=== PATIENT | male | born 1980 | race American Indian/Alaskan Native ===

== ENCOUNTER 2018-09-08 15:12 | Emergency (ER) | payer MEDICARE, MEDICAID ==
[~2018-09-08] VITALS: Ht 175.3 cm; Wt 66.2 kg
[2018-09-08 16:13] LABS: Basophils # (auto) 0 uL; Basophils % (auto) 0.2 % (0.0-2.0); Eosinophils # (auto) 0 uL; Eosinophils % (auto) 0.4 % (0.0-7.0); Hematocrit 43.4 % (41.0-53.0); Hemoglobin 14.7 g/dL (13.5-17.5); Lymphocytes # (auto) 0.9 uL; Lymphocytes % (auto) 7.2 % (10.0-50.0); Mean Corpuscular Hgb Conc. 33.9 g/dL (32.0-36.0); Mean Corpuscular Volume 88.5 fL (80.0-100.0); Monocytes # (auto) 0.7 uL; Monocytes % (auto) 5.4 % (0.0-12.0); Neutrophils # (auto) 11.1 uL; Neutrophils % (auto) 86.8 % (37.0-80.0); Platelet Count (auto) 211 10^3/uL (140-450); Red Blood Cells 4.91 10^6/uL (4.5-5.90); Red Cell Distribution Width 13.4 % (11.8-14.3); White Blood Cell 12.8 10^3/uL (4.4-10.8)
[2018-09-08 16:29] LABS: Albumin 4.3 g/dL (3.4-5.0); Calcium 8.7 mg/dL (8.5-10.1); Potassium 3.2 mmol/L (3.5-5.1)
[2018-09-08 16:32] LABS: BUN/Creatinine Ratio 14.1; Bilirubin, Total 1.2 mg/dL (0.2-1.0); Total Protein 8.1 g/dL (6.4-8.2)
[2018-09-08] MEDS ORDERED: SODIUM CHLORIDE 0.9% 1,000 ML IVB ONE (19:48)
[2018-09-08 20:59] LABS: Urine Bacteria NONE SEEN /hpf (None Seen); Urine Blood 3+ /uL (Negative); Urine Mucus FEW (None Seen); Urine WBC 1 /hpf (0 - 3)
[2018-09-08] MEDS ORDERED: POTASSIUM CHL 20 Meq TABLET PO ONE (21:15)
[2018-09-08] MEDS ORDERED: cefTRIAXone 1GM/50ML D5W 50 ML IV ONE (21:15)
[2018-09-08 21:38] VITALS: BP 127/70
== END 2018-09-08 23:05 | disposition home or self-care (01) ==
LOC: ER 15:12 → EDBD 15:12 → ER 23:05
DX: N20.2 Calculus of kidney with calculus of ureter (principal); N39.0 Urinary tract infection, site not specified; E87.6 Hypokalemia
CPT/HCPCS: 36415; 71045; 74176; 80053; 81001; 82150; 83690; 83735; 85025; 94761; 96365; 99284; J0696; J7030

== ENCOUNTER 2022-06-19 04:49 | Emergency (ER) | payer MEDICARE, MEDICAID ==
[~2022-06-19] VITALS: Ht 175.3 cm; Wt 68.0 kg
[2022-06-19 05:05] VITALS: BP 134/82
[2022-06-19] MEDS ORDERED: HYDR-3682 PO (05:59)
[2022-06-19] MEDS ORDERED: hydrOXYzine 25 MG TAB or CAP PO ONE (06:00)
== END 2022-06-19 06:31 | disposition home or self-care (01) ==
LOC: ER 04:49 → EDUNIT# 04:49 → EDBD 04:49 → ER 06:21
DX: F41.9 Anxiety disorder, unspecified (principal); R42 Dizziness and giddiness

== ENCOUNTER 2025-03-25 11:23 | Emergency (ER) | payer MEDICARE, MEDICAID ==
[~2025-03-25] VITALS: Ht 175.3 cm; Wt 66.0 kg
[~2025-03-25 11:23] MED LIST: HYDR-3682 PO
[2025-03-25 14:31] LABS: Hematocrit 45.4 % (41.0-53.0); Hemoglobin 15.9 g/dL (13.5-17.5); Mean Corpuscular Hemoglobin 30.4 pg (28.0-32.0); Mean Corpuscular Volume 86.7 fL (80.0-100.0); Nucleated Red Blood Cells % 0.1 %
[2025-03-25 14:52] LABS: Alanine Aminotransferase 28 U/L (7-40); Albumin 3.9 g/dL (3.2-4.8); Alkaline Phosphatase 66 U/L (46-116); Anion Gap 7 (5-15); BUN/Creatinine Ratio 16.1 (10.0-20.0); Blood Urea Nitrogen 14 mg/dL (9-23); Carbon Dioxide 27 mmol/L (20-31); Chloride 105 mmol/L (98-107); Magnesium 2.3 mg/dL (1.6-2.6); Potassium 4.0 mmol/L (3.5-5.1); Sodium 139 mmol/L (136-145); Total Protein 5.8 g/dL (5.7-8.2)
[2025-03-25 14:57] LABS: Bilirubin, Total 1.6 mg/dL (0.2-1.0); Calcium 8.4 mg/dL (8.7-10.4); Glucose 138 mg/dL (74-106)
--- NOTE | 2025-03-25 15:01 | DVH ---
CHEST RADIOGRAPH Indication: syncope Technique: Single frontal view of the chest was obtained COMPARISON: None FINDINGS: Lines and Tubes: None Lungs: Clear Pleura: No effusion. No pneumothorax. Cardiomediastinal contours: Unremarkable Bones: Unremarkable IMPRESSION: No acute disease.
--- NOTE | 2025-03-25 15:07 | ED.PDOC ---
Altered Mental Status HPI Comments HPI: Eloy 44 y.o male presents to the ED via EMS for an evaluation of a syncopal episode while donating plasma today. Patient reports donating plasma every 4 days for financial purposes and states this is the first time he had passed out. Patient mentions poor quality of sleep and did not eat prior to donating today. He mentions "seeing spots" still but denies any nausea, vomiting, chest pain, SOB, fever, chills. Initial Vitals BP: 113/77 HR: 65 RR: 16 O2: 98% RA Temp: 98.6 F Past Medical History: Denies Past Surgical History: Denies Social History: Denies ETOH, smoking, and drug use. Medications: Denies Allergies: Denies HPI: Poor Historian. REVIEW OF SYSTEMS: CONSTITUTIONAL: Denies acute: fever, diaphoresis, chills, generalized weakness. HEAD: Denies acute: headache, photophobia Eyes: Denies acute: Double vision, vision loss, eye pain, eye discharge. EARS: Denies acute: tinnitus, hearing loss, ear discharge, ear pain, THROAT: Denies acute: sore throat, swelling, difficulty swallowing , pain with swallowing, change in voice. NECK: Denies acute: neck pain, neck swelling, stiff neck. HEART: Denies acute : chest pain, palpitations, LUNGS: Denies acute: SOB, wheezing, cough, hemoptysis ABDOMEN: Denies acute: abdominal pain, Nausea, Vomiting, diarrhea, melena , hematemesis, hematochezia SKIN: Denies acute: rash, redness, lesions, itchiness. EXTREMITIES: Denies acute: calf pain, numbness, tingling, weakness, denies pain in extremity. Denies acute: Low back pain. Neuro: Denies acute: focal neurological deficit, motor or sensory focal neurological deficit, tremors, seizure like activity, confusion, dizziness, change in mental status, loss of bowel or bladder function, cauda equina like symptoms. : Denies acute: dysuria, hematuria, flank pain, increase in urinary frequency. PSYCH: Denies acute: hallucination, suicidal ideation, homicidal ideation. PHYSICAL EXAM: General: ----no----acute distress, awake and alert. Head: normocephalic, atraumatic. Neck: supple, trachea is midline, no swelling. Throat: Normal phonation. Eyes:, no erythema, no purulent discharge, no proptosis, no icterus. Heart: regular rate, regular rhythm, no significant murmur appreciated. Lungs: no apparent respiratory distress, Able to speak in full sentences. No wheezing, no rhonchi, no crackles. No stridors Clear to auscultation bilaterally. Abdomen: non tender to palpation, non distended, soft, no guarding, no rebound, + bowel sounds. Neuro: Awake, Alert, oriented to name, self, situation, follows commands GCS=15. Speech is normal. Skin: no petechia, no purpura, no cyanosis, non-pale, not jaundice. Lower extremities: --no - Pitting edema no deformity, no focal swelling, no calf TTP. Makes eye contact. moves all four extremities. Face: no apparent facial droop. ED COURSE: DISCLAIMER: This medical document was created using an electronic medical record system with voice recognition software and computerized dictation system. Although this document has been carefully reviewed, there might still be some phonetic and typographical errors. Occasional wrong-word or "sound-alike" substitutions may have occurred due to the inherent limitations of voice recognition software. These areas are purely typographical due to imperfections of the software programs and do not reflect any compromise in the patient's medical care. Please read the chart carefully and recognize, using context, where these substitutions have occurred. Chief Complaint: Syncope Time Seen by MD: 14:51 Primary Care Provider: UNK Reviewed Notes: Allergies Allergies: Coded Allergies: NO KNOWN ALLERGIES (Unverified , 09/08/18) Home Meds Active Scripts Hydroxyzine Hcl (Hydroxyzine Hcl) 25 Mg Tab, 1 TAB PO PRN PRN, #30 TAB 0 Refills Prov:PATSY MARCELINO 06/19/22 Information Source: Patient Mode of Arrival: EMS Past Medical History PAST MEDICAL HISTORY: Depression Surgical History: Denies all surgeries Family History Family History: Reviewed,noncontributory to illness Social History Smoker: Non-Smoker Alcohol: Denies ETOH Use Drugs: Denies Drug Use Lives In: Other Was a procedure done? Was a procedure done?: No Differential Diagnosis (ALOC) Differential Diagnosis: Dehydration, Hypoglycemia, Other (electrolyte imbalance ) X-Ray, Labs, Meds, VS Vital Signs Date Time Temp Pulse Resp B/P (MAP) Pulse Ox O2 Delivery O2 Flow Rate FiO2 03/25/25 11:42 98.6 65 16 113/77 98 98.6 Lab Test 03/25/25 15:04 03/25/25 14:14 Range/Units Troponin I High Sensitivity 9 8 </=54 ng/L White Blood Count 7.5 4.4-10.8 10^3/uL Red Blood Count 5.24 4.5-5.90 10^6/uL Hemoglobin 15.9 13.5-17.5 g/dL Hematocrit 45.4 41.0-53.0 % Mean Corpuscular Volume 86.7 80.0-100.0 fL Mean Corpuscular Hemoglobin 30.4 28.0-32.0 pg Mean Corpuscular Hemoglobin Concent 35.1 32.0-36.0 g/dL Red Cell Distribution Width 13.4 11.8-14.3 % Platelet Count 212 140-450 10^3/uL Mean Platelet Volume 7.2 6.9-10.8 fL Neutrophils (%) (Auto) 78.3 37.0-80.0 % Lymphocytes (%) (Auto) 15.5 10.0-50.0 % Monocytes (%) (Auto) 4.6 0.0-12.0 % Eosinophils (%) (Auto) 1.3 0.0-7.0 % Basophils (%) (Auto) 0.3 0.0-2.0 % Neutrophils # (Auto) 5.9 1.6-8.6 10 ^3/uL Lymphocytes # (Auto) 1.2 0.4-5.4 10 ^3/uL Monocytes # (Auto) 0.3 0-1.3 10 ^3/uL Eosinophils # (Auto) 0.1 0-0.8 10 ^3/uL Basophils # (Auto) 0 0-0.2 10 ^3/uL Nucleated Red Blood Cells 0.1 % Sodium Level 139 136-145 mmol/L Potassium Level 4.0 3.5-5.1 mmol/L Chloride Level 105 98-107 mmol/L Carbon Dioxide Level 27 20-31 mmol/L Anion Gap 7 5-15 Blood Urea Nitrogen 14 9-23 mg/dL Creatinine 0.87 0.700-1.30 mg/dL Glomerular Filtration Rate Calc 108 >90 mL/min BUN/Creatinine Ratio 16.1 10.0-20.0 Serum Glucose 138 H 74-106 mg/dL Calcium Level 8.4 L 8.7-10.4 mg/dL Magnesium Level 2.3 1.6-2.6 mg/dL Total Bilirubin 1.6 H 0.2-1.0 mg/dL Aspartate Amino Transferase (AST) 26 13-40 U/L Alanine Aminotransferase (ALT) 28 7-40 U/L Alkaline Phosphatase 66 46-116 U/L Total Protein 5.8 5.7-8.2 g/dL Albumin 3.9 3.2-4.8 g/dL [place] [id number] Ph: [phone] DIAGNOSTIC IMAGING Diagnostic Imaging Report : [id number] Signed PATIENT: GINA MAY ACCT: [id number] UNIT: [id number] : 1980 LOC: ER ROOM / BED: / AGE / SEX: 44 / M ADM STATUS: REG ER SERVICE 140 ORDERING PHYSICIAN: ALEENA JOVEL DO PROCEDURE(s): CXRP - CHEST PORTABLE REASON: syncope ORDER NUMBER(s): [id number], ACCESSION NUMBER(s): [id number] CHEST RADIOGRAPH Indication: syncope Technique: Single frontal view of the chest was obtained COMPARISON: None FINDINGS: Lines and Tubes: None Lungs: Clear Pleura: No effusion. No pneumothorax. Cardiomediastinal contours: Unremarkable Bones: Unremarkable IMPRESSION: No acute disease. ATED BY: SEGUNDO MORAN MD DICTATED DATE/TIME: 03/25/251457 SIGNED BY: SEGUNDO MORAN MD SIGNED DATE/TIME: 03/25/251457 CC: Time of 1ST Reevaluation: 15:02 Reevaluation 1ST: Unchanged Patient Education/Counseling: Diagnosis, Treatment, Prognosis Family Education/Counseling: No Family Present Comments Patient is started him p.o. intake well. Patient has no acute distress. Departure 1 Departure Time of Disposition: 15:55 Impression: Primary Impression: Plasma donor Disposition: 01 HOME / SELF CARE / HOMELESS Condition: Stable Additional Instructions: Additional instructions: Please read all instructions provided in this packet carefully. You MUST follow-up with your primary care/family doctor in 1 to 2 days. If you are unable to see your primary care/family doctor, please return to our emergency room for re-assessment and re-evaluation in 1 to 2 days. Return to the emergency room here in our facility or to the nearest ER [facility] if your symptoms change or worsen. CONSULTATIONS: you MUST Follow-up for consultation as soon as possible with: ---- You MUST call the consultants office yourself to make an appointment. You may need to arrange that through your insurance and/or your primary/family doctor. If you are unable to see the big machine consultant in 1 to 2 days, you must return to our emergency room (or any other ER of your choice) for re-assessment and re- evaluation. Adequate fluid hydration. Please do not donate plasma anymore than once every three weeks to allow your body to recover. Although you have been discharged from the Emergency Department, this does not mean that you have a "clean bill of health". No definitive diagnosis for your symptoms has been made today. It is possible that you are in the process of developing a serious illness. This is why you must return to the ED without fail if any new or worsening symptoms develop. Discharged With: Self Critical Care Note Critical Care Time?: No I personally scribed for ALEENA JOVEL DO ([email or web address]) on 03/25/25 at 15:07. Electronically submitted by Michaelle Saleh ([facility]). ALEENA JOVEL DO Mar 25, 2025 15:07
[2025-03-25 15:56] VITALS: BP 133/67; PULSE 63; RESP 17; TEMP 98
[2025-03-25] MEDS: SODIUM CHLORIDE 0.9% 1,000 ML IV ONE (16:21)
[2025-03-25 16:48] VITALS: O2SAT 99
== END 2025-03-25 16:44 | disposition home or self-care (01) ==
LOC: ER 11:23 → EDBD 11:23 → EDUNIT# 11:23 → ER 16:44
DX: Z52.098 Other blood donor, other blood (principal); Z79.899 Other long term (current) drug therapy
CPT/HCPCS: 36415; 71045; 80053; 83735; 84484; 85025